=== PATIENT | male | born 1960 | race Caucasian/White ===

== ENCOUNTER 2019-02-11 11:01 | Day surgery (SDC) | payer OTHER ==
[~2019-02-11] VITALS: Ht 170.2 cm; Wt 85.5 kg
[~2019-02-11 11:01] MED LIST: ALPR.5 PO; ATOR10 PO; BUSP10 PO; BUSP15 PO; Depo-Testos200 MG/ML IM; ESCI10 PO; LORA1 PO; RXLORA1 PO
--- NOTE | 2019-02-11 13:08 | NUR ---
02/11/19 [id number] Nilam Little SIMETHICONE USED DURING PROCEDURE.
--- NOTE | 2019-02-11 14:12 | NUR ---
02/11/19 1412 Nilam Little NPA REMOVED AT 1340 PATIENT WAS ATTEMPTING TO PULL AT IT.
== END 2019-02-11 14:10 | disposition home or self-care (01) ==
LOC: ORSCSDS 11:01
PROVIDERS: Student in an Organized Health Care Education/Training Program
PROC: 0DBM8ZX Excision of Descending Colon, Via Natural or Artificial Opening Endoscopic, Diagnostic (ICD-10-PCS; principal; 2019-02-11 12:45)
DX: Z12.11 Encounter for screening for malignant neoplasm of colon (principal); D12.4 Benign neoplasm of descending colon; K62.89 Other specified diseases of anus and rectum; K64.8 Other hemorrhoids; E78.5 Hyperlipidemia, unspecified; E66.9 Obesity, unspecified; G47.33 Obstructive sleep apnea (adult) (pediatric); Z68.30 Body mass index [BMI] 30.0-30.9, adult; Z79.899 Other long term (current) drug therapy
CPT/HCPCS: 88305; J2250; J2704; J7120